=== PATIENT | male | born 1975 | race Caucasian/White ===

== ENCOUNTER → 2018-08-31 | Outpatient (CLI) | payer OTHER | LOC: FIMAGING 13:48 | PROVIDERS: ATTEND Family Medicine | DX: M47.26 Other spondylosis with radiculopathy, lumbar region (principal) ==

== ENCOUNTER → 2018-09-17 | Outpatient (CLI) | payer OTHER | LOC: FIMAGING 18:40 | PROVIDERS: ATTEND Physician Assistant | DX: M51.15 Intervertebral disc disorders with radiculopathy, thoracolumbar region (principal) ==